=== PATIENT | female | born 1995 | race Caucasian/White ===

== ENCOUNTER 2017-08-04 13:09 | Emergency (ER) | payer OTHER ==
--- NOTE | 2017-08-04 13:31 | EDM.PDOC ---
ED HPI GENERAL MEDICAL PROBLEM - General Chief Complaint: Lower Extremity Injury/Pain Time Seen by Provider: 08/04/17 13:23 - History of Present Illness INITIAL COMMENTS - FREE TEXT/NARRATIVE: HISTORY AND PHYSICAL: History of present illness: Patient 22-year-old female with history of scoliosis when spinal surgery in the form of sina placement in her childhood presents with intermittent paresthesia to her left lower extremity she states is basically involves her fourth and fifth digit of her left foot. There's been no weakness no incontinence or retention bowel or bladder patient states she is in the process of securing a follow-up for chronic low back pain that she has. Review of systems: As per history of present illness and below otherwise all systems reviewed and negative. Past medical history: As per history of present illness and as reviewed below otherwise noncontributory. Surgical history: As per history of present illness and as reviewed below otherwise noncontributory. Social history: No reported history of drug or alcohol abuse. Family history: As per history of present illness and as reviewed below otherwise noncontributory. Physical exam: HEENT: Atraumatic, normocephalic, pupils reactive, negative for conjunctival pallor or scleral icterus, mucous membranes moist, throat clear, neck supple, nontender, trachea midline. Lungs: Clear to auscultation, breath sounds equal bilaterally, chest nontender. Heart: S1S2, regular, negative for clicks, rubs, or JVD. Abdomen: Soft, nondistended, nontender. Negative for masses or hepatosplenomegaly. Negative for costovertebral tenderness. Pelvis: Stable nontender. Genitourinary: Deferred. Rectal: Deferred. Extremities: Atraumatic, negative for cords or calf pain. Neurovascular unremarkable. Neuro: Awake, alert, oriented. Cranial nerves II through XII unremarkable. Cerebellum unremarkable. Motor and sensory unremarkable throughout. Exam nonfocal. Diagnostics: None Therapeutics: None Impression: #1 intermittent paresthesia left lower extremity etiology to be determined #2 chronic back pain #3 history of scoliosis Definitive disposition and diagnosis as appropriate pending reevaluation and review of above. Left Leg Pain Score (Numeric/FACES): 8 - Related Data Allergies Allergy/AdvReac Type Severity Reaction Status Date / Time hydrocodone Allergy Vomiting Verified 08/04/17 13:22 Home Meds: Home Meds Levonorgestrel-Ethin Estradiol [Marlissa-28 Tablet] 1 each PO DAILY 08/04/17 [ History] Past Medical History Musculoskeletal History: Reports: Back Pain, Chronic - Past Surgical History Musculoskeletal Surgical History: Reports: Other (See Below) Other Musculoskeletal Surgeries/Procedures:: surgery for scoliosis 2006 Social & Family History - Family History Family Medical History: Noncontributory - Tobacco Use Smoking Status *Q: Never Smoker - Caffeine Use Caffeine Use: Reports: None - Recreational Drug Use Recreational Drug Use: No Review of Systems - Review of Systems Review Of Systems: ROS reveals no pertinent complaints other than HPI. ED EXAM, GENERAL - Physical Exam Exam: See Below (The dictation) Course - Vital Signs Last Recorded V/S: Last Vital Signs Temp 36.9 C 08/04/17 13:18 Pulse 83 08/04/17 13:18 Resp 20 08/04/17 13:18 BP 138/84 08/04/17 13:18 Pulse Ox 96 08/04/17 13:18 Departure - Departure Time of Disposition: 13:30 Disposition: Home, Self-Care 01 Condition: Good Clinical Impression: Paresthesia, Chronic back pain - Discharge Information Referrals: PCP,None [Primary Care Provider] - Additional Instructions: The following information is given to patients seen in the emergency department who are being discharged to home. This information is to outline your options for follow-up care. We provide all patients seen in our emergency department with a follow-up referral. The need for follow-up, as well as the timing and circumstances, are variable depending upon the specifics of your emergency department visit. If you don't have a primary care physician on staff, we will provide you with a referral. We always advise you to contact your personal physician following an emergency department visit to inform them of the circumstance of the visit and for follow-up with them and/or the need for any referrals to a consulting specialist. The emergency department will also refer you to a specialist when appropriate. This referral assures that you have the opportunity for followup care with a specialist. All of these measure are taken in an effort to provide you with optimal care, which includes your followup. Under all circumstances we always encourage you to contact your private physician who remains a resource for coordinating your care. When calling for followup care, please make the office aware that this follow-up is from your recent emergency room visit. If for any reason you are refused follow-up, please contact the [facility] emergency department at and asked to speak to the emergency department charge nurse. DHAV[facility] - Neurology Professional [address], [address] [place] [address] Follow primary medical doctor call to schedule routine appointment with neurology clinic above follow-up spine surgeon as discussed
== END 2017-08-04 13:55 | disposition home or self-care (01) ==
LOC: MW.ED 13:09
DX: R20.2 Paresthesia of skin (principal); M54.5 Low back pain; G89.29 Other chronic pain; Z88.5 Allergy status to narcotic agent; Z79.899 Other long term (current) drug therapy; Z98.890 Other specified postprocedural states
CPT/HCPCS: 99282

== ENCOUNTER 2018-03-14 11:19 | Emergency (ER) | payer BC, OTHER ==
--- NOTE | 2018-03-14 11:46 | EDM.PDOC ---
ED HPI GENERAL MEDICAL PROBLEM - General Chief Complaint: Chest Pain Stated Complaint: CHEST PAIN AND HARD TO BREATHE Time Seen by Provider: 03/14/18 11:20 Source of Information: Reports: Patient History Limitations: Reports: No Limitations - History of Present Illness INITIAL COMMENTS - FREE TEXT/NARRATIVE: HISTORY AND PHYSICAL: History of present illness: [Comes to the emergency room complaining of pain to her left upper chest. Symptoms have been present for the past 5 days and have slowly worsened. She admits an increase in stress and anxiety in her personal life involving roommates and living arrangements. She has been having upset stomach that she describes as a knot in her abdomen that is worse when she is feeling more stressed. She's had some episodes of nausea and vomiting and has been unable to eat regularly. No blood in emesis. She has had no difficulty breathing or shortness of breath. Notices an increase in pain with taking a deep breath. Is not able to sleep at night due to anxiety and thoughts racing through her mind. She's had increased crying and tearfulness. She denies any suicidal thoughts or and attempts. No fever chills. No recent illness or infection. No swelling to her feet or lower legs. Denies abdominal pain. Denies tobacco use. Occasional alcohol use. Takes oral contraception daily, otherwise no meds. Denies bleeding and clotting disorder.] Review of systems: As per history of present illness and below otherwise all systems reviewed and negative. Past medical history: As per history of present illness and as reviewed below otherwise noncontributory. Surgical history: As per history of present illness and as reviewed below otherwise noncontributory. Social history: No reported history of drug or alcohol abuse. Family history: As per history of present illness and as reviewed below otherwise noncontributory. Physical exam: Gen.: Well-developed well-nourished thin female in no acute distress. HEENT: Atraumatic, normocephalic. Oral mucous membranes are pink and moist. Neck supple, no lymphadenopathy.\ Lungs: Clear to auscultation, breath sounds equal bilaterally. Pain in chest is reproducible with palpation over her left upper chest wall. Heart: S1S2, regular, negative for clicks, rubs, or JVD. Abdomen: Tender with palpation over the epigastrium. Soft, nondistended. Negative for masses, masses or guarding. Negative for costovertebral tenderness. Pelvis: Stable nontender. Genitourinary: Deferred. Rectal: Deferred. Extremities: Atraumatic, negative for cords or calf pain. No swelling or cyanosis to feet or lower legs. Neurovascular unremarkable. Neuro: Awake, alert, oriented. Motor and sensory unremarkable throughout. Exam nonfocal. Psych: Smiles make good eye contact. His appropriate with examiner. Is not tearful but is open and honest with her feelings of anxiety and frequent tearfulness. Diagnostics: [EKG, CBC, CMP, UA, urine preg, troponin, PT/INR] Impression: [Anxiety] Plan: [Discussed with patient that her symptoms are not cardiac in her labs are normal. Encouraged her to follow-up with Chantel Lopez her PCP to discuss her symptoms. Excuse from work today and tomorrow. Follow-up with PCP. Rx written for alprazolam 0.5 mg #10 sig one half tab by mouth twice a day as needed for anxiety 0 refills. Recommend Zantac 1 tablet twice a day until follow-up. Strict return precautions are reviewed with patient. She is in agreement with today's plan all questions are answered and concerns are addressed.] Definitive disposition and diagnosis as appropriate pending reevaluation and review of above. Left Chest Pain Score (Numeric/FACES): 4 - Related Data Allergies Allergy/AdvReac Type Severity Reaction Status Date / Time hydrocodone Allergy Vomiting Verified 03/14/18 11:28 Home Meds: Home Meds Levonorgestrel-Ethin Estradiol [Marlissa-28 Tablet] 1 each PO DAILY 08/04/17 [ History] Past Medical History - Past Health History Medical/Surgical History: Denies Medical/Surgical History Musculoskeletal History: Reports: Back Pain, Chronic - Past Surgical History Musculoskeletal Surgical History: Reports: Other (See Below) Other Musculoskeletal Surgeries/Procedures:: surgery for scoliosis 2006 Social & Family History - Family History Family Medical History: Noncontributory - Tobacco Use Smoking Status *Q: Never Smoker - Caffeine Use Caffeine Use: Reports: None - Recreational Drug Use Recreational Drug Use: No ED ROS GENERAL - Review of Systems Review Of Systems: ROS reveals no pertinent complaints other than HPI. ED EXAM, GENERAL - Physical Exam Exam: See Below Course - Vital Signs Last Recorded V/S: Last Vital Signs Temp 98.1 F 03/14/18 13:16 Pulse 81 03/14/18 13:16 Resp 18 03/14/18 13:16 BP 102/70 03/14/18 13:16 Pulse Ox 97 03/14/18 13:16 - Orders/Labs/Meds Orders: Active Orders 24 hr Category Date Time Status EKG Documentation Completion [RC] STAT Care 03/14/18 11:25 Active HCG QUALITATIVE,URINE [URCHEM] Stat Lab 03/14/18 12:30 Ordered UA W/MICROSCOPIC [URIN] Stat Lab 03/14/18 12:30 Ordered Labs: Laboratory Tests 03/14/18 03/14/18 03/14/18 Range/Units 11:35 11:35 11:35 WBC 7.50 (4.0-11.0) K/uL RBC 4.87 (4.30-5.90) M/uL Hgb 14.8 (12.0-16.0) g/dL Hct 42.5 (36.0-46.0) % MCV 87.3 (80.0-98.0) fL MCH 30.4 (27.0-32.0) pg MCHC 34.8 (31.0-37.0) g/dL RDW Std Deviation 39.9 (28.0-62.0) fl RDW Coeff of Rosalinda 12 (11.0-15.0) % Plt Count 255 (150-400) K/uL MPV 10.30 (7.40-12.00) fL Neut % (Auto) 62.2 (48.0-80.0) % Lymph % (Auto) 30.5 (16.0-40.0) % Treasure % (Auto) 5.7 (0.0-15.0) % Eos % (Auto) 1.2 (0.0-7.0) % Baso % (Auto) 0.4 (0.0-1.5) % Neut # (Auto) 4.7 (1.4-5.7) K/uL Lymph # (Auto) 2.3 (0.6-2.4) K/uL Treasure # (Auto) 0.4 (0.0-0.8) K/uL Eos # (Auto) 0.1 (0.0-0.7) K/uL Baso # (Auto) 0.0 (0.0-0.1) K/uL Nucleated RBC % 0.0 /100WBC Nucleated RBCs # 0 K/uL INR 1.17 Sodium 139 (136-145) mmol/L Potassium 3.9 (3.5-5.1) mmol/L Chloride 103 (98-107) mmol/L Carbon Dioxide 25.5 (21.0-32.0) mmol/L BUN 14 (7.0-18.0) mg/dL Creatinine 1.0 (0.6-1.0) mg/dL Est Cr Clr Drug Dosing 78.98 mL/min Estimated GFR (MDRD) > 60.0 ml/min Glucose 98 (74-106) mg/dL Calcium 9.0 (8.5-10.1) mg/dL Total Bilirubin 0.6 (0.2-1.0) mg/dL AST 14 L (15-37) IU/L ALT 18 (14-63) IU/L Alkaline Phosphatase 53 (46-116) U/L Troponin I < 0.050 (0.000-0.056) ng/mL Total Protein 7.7 (6.4-8.2) g/dL Albumin 3.7 (3.4-5.0) g/dL Globulin 4.0 H (2.0-3.5) g/dL Albumin/Globulin Ratio 0.9 L (1.3-2.8) Urine Color Urine Appearance Urine pH (5.0-8.0) Ur Specific [place] (1.001-1.035) Urine Protein (NEGATIVE) mg/dL Urine Glucose (UA) (NEGATIVE) mg/dL Urine Ketones (NEGATIVE) mg/dL Urine Occult Blood (NEGATIVE) Urine Nitrite (NEGATIVE) Urine Bilirubin (NEGATIVE) Urine Ictotest Urine Urobilinogen (<2.0) EU/dL Ur Leukocyte Esterase (NEGATIVE) Urine RBC (0-2/HPF) Urine WBC (0-5/HPF) Ur Epithelial Cells (NONE-FEW) Urine Bacteria (NEGATIVE) Urine Mucus (NONE-MOD) Urine HCG, Qual (NEGATIVE) 03/14/18 03/14/18 Range/Units 12:30 12:30 WBC (4.0-11.0) K/uL RBC (4.30-5.90) M/uL Hgb (12.0-16.0) g/dL Hct (36.0-46.0) % MCV (80.0-98.0) fL MCH (27.0-32.0) pg MCHC (31.0-37.0) g/dL RDW Std Deviation (28.0-62.0) fl RDW Coeff of Rosalinda (11.0-15.0) % Plt Count (150-400) K/uL MPV (7.40-12.00) fL Neut % (Auto) (48.0-80.0) % Lymph % (Auto) (16.0-40.0) % Treasure % (Auto) (0.0-15.0) % Eos % (Auto) (0.0-7.0) % Baso % (Auto) (0.0-1.5) % Neut # (Auto) (1.4-5.7) K/uL Lymph # (Auto) (0.6-2.4) K/uL Treasure # (Auto) (0.0-0.8) K/uL Eos # (Auto) (0.0-0.7) K/uL Baso # (Auto) (0.0-0.1) K/uL Nucleated RBC % /100WBC Nucleated RBCs # K/uL INR Sodium (136-145) mmol/L Potassium (3.5-5.1) mmol/L Chloride (98-107) mmol/L Carbon Dioxide (21.0-32.0) mmol/L BUN (7.0-18.0) mg/dL Creatinine (0.6-1.0) mg/dL Est Cr Clr Drug Dosing mL/min Estimated GFR (MDRD) ml/min Glucose (74-106) mg/dL Calcium (8.5-10.1) mg/dL Total Bilirubin (0.2-1.0) mg/dL AST (15-37) IU/L ALT (14-63) IU/L Alkaline Phosphatase (46-116) U/L Troponin I (0.000-0.056) ng/mL Total Protein (6.4-8.2) g/dL Albumin (3.4-5.0) g/dL Globulin (2.0-3.5) g/dL Albumin/Globulin Ratio (1.3-2.8) Urine Color YELLOW Urine Appearance SLT CLOUDY Urine pH 6.0 (5.0-8.0) Ur Specific [place] 1.025 (1.001-1.035) Urine Protein NEGATIVE (NEGATIVE) mg/dL Urine Glucose (UA) NEGATIVE (NEGATIVE) mg/dL Urine Ketones TRACE H (NEGATIVE) mg/dL Urine Occult Blood TRACE-INTACT (NEGATIVE) Urine Nitrite NEGATIVE (NEGATIVE) Urine Bilirubin SMALL H (NEGATIVE) Urine Ictotest NEGATIVE Urine Urobilinogen 1.0 (<2.0) EU/dL Ur Leukocyte Esterase NEGATIVE (NEGATIVE) Urine RBC 0-2 (0-2/HPF) Urine WBC 2-4 (0-5/HPF) Ur Epithelial Cells MODERATE (NONE-FEW) Urine Bacteria FEW (NEGATIVE) Urine Mucus HEAVY (NONE-MOD) Urine HCG, Qual NEGATIVE (NEGATIVE) Departure - Departure Time of Disposition: 12:25 Disposition: Home, Self-Care 01 Condition: Good Clinical Impression: Anxiety Instructions: Generalized Anxiety Disorder, Adult Referrals: PCP,Unknown [Primary Care Provider] - Forms: ED Department Discharge Additional Instructions: The following information is given to patients seen in the emergency department who are being discharged to home. This information is to outline your options for follow-up care. We provide all patients seen in our emergency department with a follow-up referral. The need for follow-up, as well as the timing and circumstances, are variable depending upon the specifics of your emergency department visit. If you don't have a primary care physician on staff, we will provide you with a referral. We always advise you to contact your personal physician following an emergency department visit to inform them of the circumstance of the visit and for follow-up with them and/or the need for any referrals to a consulting specialist. The emergency department will also refer you to a specialist when appropriate. This referral assures that you have the opportunity for follow-up care with a specialist. All of these measure are taken in an effort to provide you with optimal care, which includes your follow-up. Under all circumstances we always encourage you to contact your private physician who remains a resource for coordinating your care. When calling for follow-up care, please make the office aware that this follow-up is from your recent emergency room visit. If for any reason you are refused follow-up, please contact the [facility] emergency department at and asked to speak to the emergency department charge nurse. DHAVAL [facility] [address] [place] [id number] Follow-up with your primary care provider in the next 48-72 hours as we discussed. Take medication as prescribed Take Pepcid or Zantac twice daily for stomach discomfor Return to ER as needed as discussed.t.. - My Orders Last 24 Hours: My Active Orders 03/14/18 11:25 EKG Documentation Completion [RC] STAT 03/14/18 12:30 HCG QUALITATIVE,URINE [URCHEM] Stat UA W/MICROSCOPIC [URIN] Stat - Assessment/Plan Last 24 Hours: My Active Orders 03/14/18 11:25 EKG Documentation Completion [RC] STAT 03/14/18 12:30 HCG QUALITATIVE,URINE [URCHEM] Stat UA W/MICROSCOPIC [URIN] Stat
[2018-03-14 12:14] LABS: CHLORIDE,CL 103 mmol/L (98-107); SODIUM,NA 139 mmol/L (136-145)
== END 2018-03-14 13:09 | disposition home or self-care (01) ==
LOC: MW.ED 11:19
DX: F41.9 Anxiety disorder, unspecified (principal); Z88.5 Allergy status to narcotic agent
CPT/HCPCS: 36415; 80053; 81001; 81025; 84484; 85025; 85610; 93005; 99283; 99285-25

== ENCOUNTER 2018-03-21 08:04 | Emergency (ER) | payer BC ==
[2018-03-21] MEDS ORDERED: Ondansetron 4 MG Tab.DIS PO ONE (08:20)
--- NOTE | 2018-03-21 08:20 | EDM.PDOC ---
ED HPI GENERAL MEDICAL PROBLEM - General Stated Complaint: BLOOD IN VOMIT Time Seen by Provider: 03/21/18 08:07 Source of Information: Reports: Patient History Limitations: Reports: No Limitations - History of Present Illness INITIAL COMMENTS - FREE TEXT/NARRATIVE: HISTORY AND PHYSICAL: History of present illness: 22-year-old female presenting to emergency department with chief complaint of nausea and vomiting with one episode of hematemesis with past medical history of scoliosis and Jimenez sina placement and anxiety. Patient states that Wednesday of last week she was started on Zoloft and ever since then she has had nausea with some episodes of vomiting. This morning she woke and while brushing her teeth became very nauseous and had 1 episode of vomiting/retching resulted in some streaky red tinged vomitus. Secondary above she became seriously concerned and came to emergency department for further evaluation. Patient states she has a history of anxiety and recently was prescribed Ativan here in the emergency department. She has only takedn it twice secondary to worry that it is a "bad drug". She does have a history of panic attacks. She did see her primary care provider Chantel Huang, who started her on Zoloft last week. There is some correlation between starting Zoloft as well as her nausea and vomiting however she does get anxiety which also relates to her nausea and vomiting. She denies any history of alcohol abuse , esophageal varices, GERD, chest pain, palpitations, shortness of breath, syncopal episodes, focal neurologic deficits. Patient does take daily control, but is sexually active and is unsure if she could be . Review of systems: As per history of present illness and below otherwise all systems reviewed and negative. Past medical history: As per history of present illness and as reviewed below otherwise noncontributory. Surgical history: As per history of present illness and as reviewed below otherwise noncontributory. Social history: No reported history of drug or alcohol abuse. Family history: As per history of present illness and as reviewed below otherwise noncontributory. Physical exam: HEENT: Atraumatic, normocephalic, pupils reactive, negative for conjunctival pallor or scleral icterus, mucous membranes moist, throat clear, neck supple, nontender, trachea midline. Lungs: Clear to auscultation, breath sounds equal bilaterally, chest nontender. Heart: S1S2, regular, negative for clicks, rubs, or JVD. Abdomen: Soft, nondistended, mild suprapubic tenderness. Negative for masses or hepatosplenomegaly. Negative for costovertebral tenderness. Pelvis: Stable nontender. Genitourinary: Deferred. Rectal: Deferred. Extremities: Atraumatic, negative for cords or calf pain. Neurovascular unremarkable. Neuro: Awake, alert, oriented. Cranial nerves II through XII unremarkable. Cerebellum unremarkable. Motor and sensory unremarkable throughout. Exam nonfocal. Diagnostics: Urine hCG, UA/UC Therapeutics: Zofran 4 mg ODT, Phenergan 25 mg every 6 hours Impression: Nausea with vomiting secondary to drug Plan: Urinalysis and hCG were unremarkable. Nausea with vomiting, most likely related to combination of new drug, as well as anxiety. Patient had resolution of her nausea with Zofran. Did give her prescription of Phenergan 25 mg by mouth every 6 hours for any further nausea. She should continue to take her Zoloft and talk with her PCP Chantel as to if she is able to tolerate the medication. She should stay on Zoloft so she can be become more acclimated to the medication over some time and it is good to stay on it if at all possible. If for some reason her nausea continues and is unable to be controlled, She may need to be switched to a different antidepressant. Patient was instructed to return emergency department she had any new or worsening symptoms and continued fluid hydration. - Related Data Allergies Allergy/AdvReac Type Severity Reaction Status Date / Time codeine Allergy Vomiting Verified 03/21/18 08:18 hydrocodone Allergy Vomiting Verified 03/21/18 08:17 Home Meds: Home Meds Levonorgestrel-Ethin Estradiol [Marlissa-28 Tablet] 1 each PO DAILY 08/04/17 [ History] ALPRAZolam [Xanax] 0.25 mg PO BID PRN 03/21/18 [History] Sertraline [Zoloft] 25 mg PO DAILY 03/21/18 [History] Past Medical History - Past Health History Medical/Surgical History: Denies Medical/Surgical History Musculoskeletal History: Reports: Back Pain, Chronic - Past Surgical History Musculoskeletal Surgical History: Reports: Other (See Below) Other Musculoskeletal Surgeries/Procedures:: surgery for scoliosis 2007 Social & Family History - Family History Family Medical History: Noncontributory - Caffeine Use Caffeine Use: Reports: None ED ROS GENERAL - Review of Systems Review Of Systems: ROS reveals no pertinent complaints other than HPI. ED EXAM, GENERAL - Physical Exam Exam: See Below Course - Vital Signs Last Recorded V/S: Last Vital Signs Temp 97.9 F 03/21/18 08:20 Pulse 86 03/21/18 08:20 Resp 18 03/21/18 08:20 BP 121/78 03/21/18 08:20 Pulse Ox 95 03/21/18 08:20 - Orders/Labs/Meds Orders: Active Orders 24 hr Category Date Time Status UA W/MICROSCOPIC [URIN] Stat Lab 03/21/18 08:15 Ordered Labs: Laboratory Tests 03/21/18 03/21/18 Range/Units 08:15 08:15 Urine Color YELLOW Urine Appearance SLT CLOUDY Urine pH 5.5 (5.0-8.0) Ur Specific [place] >= 1.030 (1.001-1.035) Urine Protein 100 (NEGATIVE) mg/dL Urine Glucose (UA) NEGATIVE (NEGATIVE) mg/dL Urine Ketones NEGATIVE (NEGATIVE) mg/dL Urine Occult Blood TRACE-INTACT (NEGATIVE) Urine Nitrite NEGATIVE (NEGATIVE) Urine Bilirubin NEGATIVE (NEGATIVE) Urine Urobilinogen 0.2 (<2.0) EU/dL Ur Leukocyte Esterase NEGATIVE (NEGATIVE) Urine RBC 1-3 (0-2/HPF) Urine WBC 0-3 (0-5/HPF) Ur Epithelial Cells MODERATE (NONE-FEW) Urine Bacteria 1+ H (NEGATIVE) Urine Mucus LIGHT (NONE-MOD) Urine HCG, Qual NEGATIVE (NEGATIVE) Meds: Medications Discontinued Medications Generic Name Dose Route Start Last Admin Trade Name Belle PRN Reason Stop Dose Admin Ondansetron HCl 4 mg 03/21/18 08:20 03/21/18 08:20 Zofran Odt PO 03/21/18 08:21 4 mg ONETIME ONE Administration Departure - Departure Time of Disposition: 10:30 Disposition: Home, Self-Care 01 Condition: Good Clinical Impression: Nausea and vomiting Qualifiers: Vomiting type: unspecified Vomiting Intractability: non-intractable Qualified Code(s): R11.2 - Nausea with vomiting, unspecified - Discharge Information Referrals: Chantel Lopez, OWNER/PHOTOGRAPHER [Primary Care Provider] - Additional Instructions: My general discharge The following information is given to patients seen in the emergency department who are being discharged to home. This information is to outline your options for follow-up care. We provide all patients seen in our emergency department with a follow-up referral. The need for follow-up, as well as the timing and circumstances, are variable depending upon the specifics of your emergency department visit. If you don't have a primary care physician on staff, we will provide you with a referral. We always advise you to contact your personal physician following an emergency department visit to inform them of the circumstance of the visit and for follow-up with them and/or the need for any referrals to a consulting specialist. The emergency department will also refer you to a specialist when appropriate. This referral assures that you have the opportunity for follow-up care with a specialist. All of these measure are taken in an effort to provide you with optimal care, which includes your follow-up. Under all circumstances we always encourage you to contact your private physician who remains a resource for coordinating your care. When calling for follow-up care, please make the office aware that this follow-up is from your recent emergency room visit. If for any reason you are refused follow-up, please contact the [facility] Emergency Department at and asked to speak to the emergency department charge nurse. [facility] [address] [place] [phone] Take medication as prescribed. Continue to push fluids. Follow-up with Chantel. Return emergency department if any new or worsening symptoms. - My Orders Last 24 Hours: My Active Orders 03/21/18 08:15 UA W/MICROSCOPIC [URIN] Stat - Assessment/Plan Last 24 Hours: My Active Orders 03/21/18 08:15 UA W/MICROSCOPIC [URIN] Stat
== END 2018-03-21 10:41 | disposition home or self-care (01) ==
LOC: MW.ED 08:04
DX: R11.2 Nausea with vomiting, unspecified (principal); Z88.5 Allergy status to narcotic agent; Z79.899 Other long term (current) drug therapy
CPT/HCPCS: 81001; 81025; 99283; A9270